=== PATIENT | male | born 1985 | race Caucasian/White ===

== ENCOUNTER → 2016-07-22 | Outpatient (REF) ==
--- NOTE | 2016-07-22 11:42 | REP ---
Clinical: Chest pain . Comparison: None . Technique: PA and lateral. Findings: The mediastinum and cardiac silhouette are normal. The lung navas are clear and without acute consolidation, effusion, or pneumothorax. The skeletal structures are intact and normal. Impression: 1. No acute cardiopulmonary process. Signed by Marino Gonzalez MD 07/22/2016 11:34 A
--- NOTE | 2016-07-22 11:48 | REP ---
Clinical: Pain and disability . Technique: Internal rotation, external rotation, and Y view of the right and left shoulders. Findings: No acute fracture or dislocation. The acromioclavicular and glenohumeral joints are intact, symmetric, and age appropriate. No periarticular calcifications or overt osteoarthritic changes appreciated. Sub acromial space is normal. Surrounding soft tissues are unremarkable. Impression: Normal age appropriate bilateral shoulder radiographs. Signed by Marino Gonzalez MD 07/22/2016 11:39 A
== END ==
LOC: M SMT 11:04
PROVIDERS: ATTEND Internal Medicine
DX: Z00.00 Encounter for general adult medical examination without abnormal findings (principal)